=== PATIENT | female | born 1935 | race Caucasian/White ===

== ENCOUNTER 2023-01-14 09:13 | Emergency (ER) | payer OTHER ==
[~2023-01-14] VITALS: Ht 165.1 cm; Wt 65.3 kg
--- NOTE | 2023-01-14 09:33 | NUR ---
BLOOD SAMPLES OBTAINED
--- NOTE | 2023-01-14 09:41 | NUR ---
CALLED POISON CONTROL [phone] PER [facility] TING: RECOMMENDED OBS OF SIX HOURS. DO CMP TY ASA LIVER ENZYMES IF TYPE OF TABLET THAT IS 24 HOURS RELEASE THEN CHANGE OBS TO 24 HOURS. SUPPORTIVE CARE.
--- NOTE | 2023-01-14 09:41 | NUR ---
Urine sample obtained.
[2023-01-14] MEDS ORDERED: NALOXONE HCL 0.4 MG/ML AMPUL ONE (09:49)
[2023-01-14 09:51] LABS: BASOPHILS % (AUTO) 0.4 % (0.0-2.0); EOSINOPHILS % (AUTO) 2.3 % (0.0-6.0); HEMATOCRIT 37 % (33-45); HEMOGLOBIN 12.3 g/dL (11.5-14.8); LYMPHOCYTES # (AUTO) 1.3 K/uL (0.8-4.8); LYMPHOCYTES % (AUTO) 24.8 % (20.0-44.0); MEAN CORPUSCULAR HGB CONC 33 g/dl (31.0-36.0); MEAN CORPUSCULAR VOLUME 90 fL (82-100); MONOCYTES # (AUTO) 0.5 K/uL (0.1-1.30); MONOCYTES % (AUTO) 8.4 % (2.0-12.0); NEUTROPHILS # (AUTO) 3.5 K/uL (1.8-8.9); NEUTROPHILS % (AUTO) 64.1 % (43.0-81.0); PLATELET COUNT (AUTO) 275 K/uL (150-450); RED BLOOD CELL COUNT(AUTO) 4.11 MIL/uL (4.0-5.2); WHITE BLOOD COUNT (AUTO) 5.4 K/uL (4.3-11.0)
[2023-01-14 09:53] LABS: BILIRUBIN,URINE NEGATIVE (NEGATIVE); COLOR,URINE YELLOW (YELLOW); LEUKOCYTE ESTERASE ,URINE NEGATIVE (NEGATIVE); NITRITE, URINE NEGATIVE (NEGATIVE); PH,URINE 5.5 (5.0-8.0); PROTEIN,URINE NEGATIVE (NEGATIVE); UGLUCOSE NEGATIVE (NEGATIVE); UROBILINOGEN,URINE 0.2 EU/dL (0.2)
--- NOTE | 2023-01-14 09:55 | NUR ---
CALLED POISON CONTROL [phone] INFORMED DANAE [facility] ABOUT HYDROCODONE 10-325. RECOMMENDED OBS AT SIX HOURS.
[2023-01-14] MEDS ORDERED: NALOXONE HCL 0.4 MG/ML AMPUL IV ONE (10:00)
[2023-01-14 10:54] LABS: CALCIUM, SERUM 8.4 mg/dL (8.5-10.1); CREATININE 0.9 mg/dL (0.6-1.3)
[2023-01-14 10:57] LABS: ALBUMIN 3.7 g/dL (3.4-5.0); BILIRUBIN,DIRECT 0.2 mg/dL (0.0-0.2); BILIRUBIN,TOTAL 0.4 mg/dL (0.2-1.0); TOTAL PROTEIN, SERUM 6.9 g/dL (6.4-8.2)
--- NOTE | 2023-01-14 11:27 | NUR ---
THE PATIENT CAME TO THE ER WITH POLICE X 2 DUE TO SI. THE PATIENT'S SON CALLED POLICE BECAUSE SHE TOOK OVER DOSE OF [place] MEDICATIONS.
--- NOTE | 2023-01-14 14:04 | NUR ---
CALLED MADY ON HIS WAY.
[2023-01-14 15:24] LABS: CALCIUM, SERUM 8.6 mg/dL (8.5-10.1); CREATININE 0.9 mg/dL (0.6-1.3); POTASSIUM 4.1 mmol/L (3.5-5.1)
[2023-01-14 15:30] LABS: ALBUMIN 3.8 g/dL (3.4-5.0); BILIRUBIN,TOTAL 0.3 mg/dL (0.2-1.0); TOTAL PROTEIN, SERUM 6.9 g/dL (6.4-8.2)
--- NOTE | 2023-01-14 17:05 | NUR ---
CALLED [facility] [phone]. DR. LEVINE WILL CALL US BACK.
--- NOTE | 2023-01-14 18:28 | NUR ---
Spoke with Luis/Noelle who will arrange the room, and faxed over the [employer]ESS[employer] note (The number at [phone]).
--- NOTE | 2023-01-14 19:22 | NUR ---
MARIPOSA FROM [facility] CALLED [phone] REQUESTING CLINICALS FAXED TO [phone]
--- NOTE | 2023-01-14 20:37 | NUR ---
fax hold and covid
--- NOTE | 2023-01-14 21:45 | NUR ---
SPOKE TO AUGUSTINE FROM POISON CONTROL. INFORMED TO REPEAT ACETAMINOPHEN AND LFTS. START MUCOMYST IF ACETAMINOPHEN GREATER THAN OR EQUAL TO 10 OR UPWARD TREND IN LFTS.
[2023-01-14 22:42] LABS: CALCIUM, SERUM 8.5 mg/dL (8.5-10.1); CREATININE 0.8 mg/dL (0.6-1.3); POTASSIUM 4.5 mmol/L (3.5-5.1)
[2023-01-14 22:52] LABS: ALBUMIN 3.5 g/dL (3.4-5.0); BILIRUBIN,TOTAL 0.5 mg/dL (0.2-1.0); TOTAL PROTEIN, SERUM 6.5 g/dL (6.4-8.2)
--- NOTE | 2023-01-14 23:59 | NUR ---
CALLED POISON CONTROL TO UPDATE REGARDING UPDATED LFTS AND ACETAMINOPHEN LEVEL. SPOKE TO TYRONE AND CASE CLOSED.
--- NOTE | 2023-01-15 01:42 | NUR ---
UPDATED MAI [facility]OCK CM REGARDING PT. NO BEDS AVAILABLE AT [facility]. POSSIBLE BED AVAILABLE LATER IN THE MORNING
--- NOTE | 2023-01-15 03:02 | NUR ---
AMISH MEEK AT [facility] CALLED TO TELL US THAT THEY WOULD BE CALLING OTHER HOSPITALS FOR TRANSFER DUE TO [facility] REQUIRING PCR TEST AND PCR TEST TAKES TOO LONG TO RESULT
--- NOTE | 2023-01-15 05:21 | NUR ---
EKG FAXED TO [facility]
--- NOTE | 2023-01-15 09:04 | NUR ---
CALL FROM [facility],STILL LOOKING FOR A BED
--- NOTE | 2023-01-15 09:09 | NUR ---
PT APPEARS TO BE SLEEPING COMFORTABLY IN BED. BREATHING EVEN AND UNLABORED. VSS. SAFETY PRECAUTIONS IN PLACE. SITTER IN DIRECT LINE OF SIGHT TO THE PATIENT.
[2023-01-15 09:10] VITALS: BP 124/77
--- NOTE | 2023-01-15 09:25 | NUR ---
SPOKE TO FANTASMA CHOUDHURY [phone]
--- NOTE | 2023-01-15 10:10 | NUR ---
FAX PT ALCOHOL LEVEL TO [facility] FAX# [phone]
--- NOTE | 2023-01-15 17:37 | NUR ---
[facility] 6 REPORT TO [phone] DR. DOMINGUEZ TRANSPORT ETA AT 2030
--- NOTE | 2023-01-15 21:16 | NUR ---
[facility] AT BED SIDE. RADHA THE SON MADE AWARE.
--- NOTE | 2023-01-15 21:20 | NUR ---
PICKUP BY [facility] IN A STABLE- COOPERATIVE CONDITION FOR TRANSFER TO [facility]
== END 2023-01-15 21:25 | disposition short-term general hospital (02) ==
LOC: ER 09:16
DX: T40.2X2A Poisoning by other opioids, intentional self-harm, initial encounter (principal); F32.A Depression, unspecified; Z20.822 Contact with and (suspected) exposure to COVID-19; Y92.89 Other specified places as the place of occurrence of the external cause
CPT/HCPCS: 99285; 96374; 93005; 85025; 80048; 80076; 81003; 36415 ×2; 80053 ×2; 87426; 80143 ×2; 80320 ×2; 80307; J2310; U0003; C9803 ×2; G0480